=== PATIENT | male | born 1970 | race Caucasian/White ===

== ENCOUNTER 2020-08-19 06:04 | Emergency (ER) | payer SELFPAY ==
[~2020-08-19] VITALS: Ht 180.3 cm; Wt 68.0 kg
--- NOTE | 2020-08-19 06:40 | NUR ---
PATIENT C/O BODY ACHES, DIARRHEA, H/A AND PRODUCTIVE COUGH X 4 DAYS. NOT VACCIANTED FOR COVID. PATIENT A/O X 4, RR EVEN AND UNLABORED, NO SOB NOTED. VSS, PATIENT CONNECTED TO MONITOR. WILL CONTINUE TO MONITOR.
--- NOTE | 2020-08-19 06:55 | NUR ---
COVID SWAB COLLECTED AND SENT TO LAB
--- NOTE | 2020-08-19 06:57 | NUR ---
X RAY AT BEDSIDE
[2020-08-19] MEDS ORDERED: IV NS 0.9% 1,000 ML BAG IV ONE (07:00)
[2020-08-19 07:07] LABS: BASOPHILS % (AUTO) 0.5 % (0.0-2.0); EOSINOPHILS % (AUTO) 1.2 % (0.0-6.0); HEMATOCRIT 42 % (39-51); LYMPHOCYTES % (AUTO) 34.1 % (20.0-44.0); MEAN CORPUSCULAR HGB CONC 33 g/dl (31.0-36.0); MEAN CORPUSCULAR VOLUME 93 fL (80-96); MONOCYTES # (AUTO) 0.6 K/uL (0.1-1.30); MONOCYTES % (AUTO) 10.4 % (2.0-12.0); NEUTROPHILS # (AUTO) 3.1 K/uL (1.8-8.9); NEUTROPHILS % (AUTO) 53.8 % (43.0-81.0); PLATELET COUNT (AUTO) 153 K/uL (150-450); RED BLOOD CELL COUNT(AUTO) 4.54 MIL/uL (4.5-6.0); WHITE BLOOD COUNT (AUTO) 5.8 K/uL (4.3-11.0)
[2020-08-19 07:36] LABS: ALANINE AMINOTRANSFERASE 20 U/L (12-78); ALBUMIN 2.9 g/dL (3.4-5.0); ALKALINE PHOSPHATASE 37 U/L (46-116); ASPARTATE AMINOTRANSFERASE 25 U/L (15-37); BILIRUBIN,DIRECT 0.1 mg/dL (0.0-0.2); BILIRUBIN,TOTAL 0.3 mg/dL (0.2-1.0); CALCIUM, SERUM 7.3 mg/dL (8.5-10.1); CARBON DIOXIDE 29 mmol/L (21-32); CHLORIDE 103 mmol/L (98-107); CREATININE 0.8 mg/dL (0.6-1.3); GLUCOSE 99 mg/dL (74-106); LIPASE 157 U/L (73-393); POTASSIUM 4.8 mmol/L (3.5-5.1); SODIUM SERUM 134 mmol/L (136-145); TOTAL PROTEIN, SERUM 6.4 g/dL (6.4-8.2); UREA NITROGEN, BLOOD 12 mg/dL (7-18)
[2020-08-19 08:26] VITALS: BP 100/67
--- NOTE | 2020-08-19 08:27 | NUR ---
Patient discharged to home in stable condition. Written and verbal after care instructions given. Patient verbalizes understanding of instruction.
== END 2020-08-19 08:26 | disposition home or self-care (01) ==
LOC: ER 06:52
DX: R53.1 Weakness (principal); M79.10 Myalgia, unspecified site; R05 Cough; Z20.822 Contact with and (suspected) exposure to COVID-19
CPT/HCPCS: 36415; 71045; 80048; 80076; 83690; 84484; 85025; 87426; 96360; 99284; C9803